=== PATIENT | male | born 1970 | race Caucasian/White ===

== ENCOUNTER 2019-12-18 11:36 | Emergency (ER) | payer MEDICAID ==
[~2019-12-18] VITALS: Ht 177.8 cm; Wt 81.8 kg
[2019-12-18 12:20] VITALS: BP 164/99
== END 2019-12-18 12:22 | disposition home or self-care (01) ==
LOC: ER 11:37
DX: S01.81XA Laceration without foreign body of other part of head, initial encounter (principal); W22.8XXA Striking against or struck by other objects, initial encounter; Y93.89 Activity, other specified; Y92.89 Other specified places as the place of occurrence of the external cause; Y99.9 Unspecified external cause status
CPT/HCPCS: 99282